=== PATIENT | female | born 1970 | race Caucasian/White ===

== ENCOUNTER 2017-02-05 05:08 | Day surgery (SDC) | payer BC, OTHER ==
[2017-01-30 10:50] VITALS: BMI 19.7
[2017-02-05] MEDS ORDERED: PROPOFOL 20 ML ONE (13:46)
[2017-02-05] MEDS ORDERED: MIDAZOLAM HCL 2 MG/2 ML SINGLE DOSE VIAL ONE (13:46)
[2017-02-05] MEDS ORDERED: ceFAZolin SODIUM 1 GM VIAL IVPB ONE (14:01)
[2017-02-05] MEDS ORDERED: ceFAZolin SODIUM 1 GM VIAL ONE (14:02)
--- NOTE | 2017-02-05 14:22 | OP ---
Operative Note - Note: Operative Date: 02/05/17 Pre-Operative Diagnosis: Urethral stenosis Operation: cysto- dilatation Findings: Urethral stenosis Post-Operative Diagnosis: Same as Pre-op Anesthesia: General
[2017-02-05] MEDS ORDERED: ACETAMINOPHEN 325 MG TABLET (FP) PO PRN (14:31)
[2017-02-05] MEDS ORDERED: ONDANSETRON 4 MG/2 ML VIAL IVPUSH PRN (14:31)
[2017-02-05] MEDS ORDERED: oxyCODONE HCL 5 MG TABLET PO PRN (14:31)
[2017-02-05] MEDS ORDERED: LACTATED RINGERS SOLUTION 1,000 ML IV SCH (14:45)
[2017-02-05 15:47] VITALS: TEMP 98.4
[2017-02-05 16:02] VITALS: BP 95/72; PULSE 76
--- NOTE | 2017-02-08 08:17 | OP ---
DATE OF OPERATION: 02/05/2017 SURGEON: Guillaume Pablo MD ANESTHESIA: General. PREOPERATIVE DIAGNOSES: 1. Urethral stenosis. 2. Recurrent urinary tract infection. POSTOPERATIVE DIAGNOSES: 1. Urethral stenosis. 2. Recurrent urinary tract infection. PROCEDURE: Cystoscopy and dilatation. FINDINGS: [id number] degree of urethral stenosis noted. DESCRIPTION OF PROCEDURE: The patient, in lithotomy position under anesthesia, was prepped and draped in the usual manner. Urethra was dilated first, then cystoscopy performed, and findings were noted above. Patient tolerated the procedure well and left the operating room in a satisfactory condition. Cecily [id number]
== END 2017-02-05 16:20 | disposition home or self-care (01) ==
LOC: JASU-SURG 05:08
PROVIDERS: ATTEND Urology
PROC: 0T7D8ZZ Dilation of Urethra, Via Natural or Artificial Opening Endoscopic (ICD-10-PCS; principal; 2017-02-05 13:00)
DX: N35.9 Urethral stricture, unspecified (principal); Z87.440 Personal history of urinary (tract) infections
CPT/HCPCS: 94760

== ENCOUNTER 2018-02-02 05:06 | Day surgery (SDC) | payer BC, OTHER ==
[2018-01-27 16:08] VITALS: BMI 19.3
[2018-02-02] MEDS ORDERED: MIDAZOLAM HCL 2 MG/2 ML SINGLE DOSE VIAL ONE (11:00)
[2018-02-02] MEDS ORDERED: ceFAZolin SODIUM 1 GM VIAL IVPB ONE (11:17)
--- NOTE | 2018-02-02 11:26 | OP ---
Operative Note - Note: Operative Date: 02/02/18 Pre-Operative Diagnosis: Urethral Stricture Operation: Cysto Dilatation Findings: Bladder shows some trabeculation. Ureteral orifices WNL. Urethral stricture noted Post-Operative Diagnosis: Same as Pre-op Surgeon: Guillaume Pablo Anesthesia: General
[2018-02-02 12:28] VITALS: TEMP 97.9
[2018-02-02 14:48] VITALS: BP 111/74; PULSE 78
--- NOTE | 2018-02-02 19:06 | OP ---
DATE OF OPERATION: 02/02/2018 SURGEON: Guillaume Pablo MD ANESTHESIA: General. PREOPERATIVE DIAGNOSIS: Urethral stricture. POSTOPERATIVE DIAGNOSIS: Urethral stricture. PROCEDURE: Cystoscopy and urethral dilatation. FINDINGS: [id number] urethral stricture noted. Bladder within normal limits. Some trabeculation of the bladder wall noted. Both ureteral orifices normally located with clear efflux. DESCRIPTION OF PROCEDURE: Patient, in lithotomy position, under anesthesia, was prepped and draped in the usual manner. Using 22 scope, cystoscopy performed, and findings were noted above. Then, using the sounds, urethra was dilated up to 24-Hebrew in size. Patient tolerated the procedure well and left the operating room in satisfactory condition. Cecily GALEANO/[id number]
== END 2018-02-02 13:40 | disposition home or self-care (01) ==
LOC: JASU-SURG 05:06
PROVIDERS: ATTEND Urology
PROC: 0T7D8ZZ Dilation of Urethra, Via Natural or Artificial Opening Endoscopic (ICD-10-PCS; principal; 2018-02-02 10:00)
DX: N35.9 Urethral stricture, unspecified (principal)
CPT/HCPCS: 94760

== ENCOUNTER 2018-05-13 16:12 | Emergency (ER) | payer BC, OTHER ==
--- NOTE | 2018-05-13 16:17 | PDOC ---
History of Present Illness - General History Source: Patient Exam Limitations: No Limitations - History of Present Illness Initial Comments: 05/13/18 17:15 The patient is a 47 year old female, with a significant PMH of untreated hyperthyroidism, IBS, and mitral valve prolapse who presents to the emergency department for evaluation of possible right index finger infection. The patient notes swelling and redness to the right index finger today. The patient denies any trauma, numbness and tingling to the site. Denies fever, chills, nausea. Allergies: NKDA Past surgical history: Laproscopy and tonsillectomy Social history: None reported PCP: None reported <Johann García - Last Filed: 05/13/18 17:20> <Linda Menezes - Last Filed: 05/13/18 18:56> - General Chief Complaint: Redness To Affected Area Stated Complaint: RT 2ND FINGER RED Time Seen by Provider: 05/13/18 16:16 Past History <Johann García - Last Filed: 05/13/18 17:20> - Past Medical History Anemia: No Asthma: No Cancer: No Cardiac Disorders: Yes (MVP) CVA: No COPD: No CHF: No Dementia: No Diabetes: No GI Disorders: Yes (IBS) Disorders: Yes (URETHRAL STRICTURES) HTN: No Hypercholesterolemia: No Liver Disease: No Seizures: No Thyroid Disease: Yes (HYPERTHYROIDISM-NO MEDS) - Surgical History Abdominal Surgery: Yes (LAPAROSCOPIC TO CHECK FOR ENDOMETRIOSIS) Appendectomy: No Cardiac Surgery: No Cholecystectomy: No Lung Surgery: No Neurologic Surgery: No Orthopedic Surgery: Yes (TONSILLECTOMY) - Immunization History Td Vaccination: No Immunization Up to Date: Yes - Suicide/Smoking/Psychosocial Hx Smoking Status: No Smoking History: Never smoked Years of Tobacco Use: 0 Have you smoked in the past 12 months: No Number of Cigarettes Smoked Daily: 0 Cigars Per Day: 0 Hx Alcohol Use: No Drug/Substance Use Hx: No Substance Use Type: None Hx Substance Use Treatment: No <Linda Menezes - Last Filed: 05/13/18 18:56> - Past Medical History Allergies/Adverse Reactions: Allergies Allergy/AdvReac Type Severity Reaction Status Date / Time levofloxacin [From Levaquin] AdvReac Severe Verified 02/25/18 22:49 azithromycin AdvReac Intermediate Verified 02/25/18 22:49 Home Medications: Ambulatory Orders Amoxicillin 2,000 mg PO BID 7 Days ml 05/13/18 Mupirocin Ointment [Bactroban 2% Ointment -] 1 applic TP BID #1 applic 05/13/18 Review of Systems - Review of Systems Constitutional: No: Symptoms Reported, See HPI, Chills, Diaphoresis, Fever, Loss of Appetite, Malaise, Night Sweats, Weakness, Weight Stable, Unintentional Wgt. Loss, Unexplained wgt Loss, Other HEENTM: No: Symptoms Reported, See HPI, Eye Pain, Blurred Vision, Tearing, Recent change in vision, Double Vision, Cataracts, Ear Pain, Ocular Prothesis, Ear Discharge, Nose Pain, Nose Congestion, Tinnitus, Nose Bleeding, Hearing Loss , Throat Pain, Throat Swelling, Mouth Pain, Dental Problems, Difficulty Swallowing, Mouth Swelling, Other Integumentary: Yes: Erythema (right index finger ) <Johann García - Last Filed: 05/13/18 17:20> *Physical Exam - Vital Signs Last Vital Signs Temp Pulse Resp BP Pulse Ox 98.1 F 74 20 109/80 100 05/13/18 16:13 05/13/18 16:13 05/13/18 16:13 05/13/18 16:13 05/13/18 16:13 - Physical Exam General Appearance: Yes: Nourished, Appropriately Dressed, Apparent Distress Integumentary: positive: Erythema, Swelling (right index finger ) <Johann García - Last Filed: 05/13/18 17:20> *DC/Admit/Observation/Transfer - Attestations Scribe Attestion: 05/13/18 17:19 Documentation prepared by Johann García, acting as medical imaging technologist for Linda Menezes MD. <Johann García - Last Filed: 05/13/18 17:20> - Discharge Dispostion Decision to Admit order: No <Linda Menezes - Last Filed: 05/13/18 18:56> Diagnosis at time of Disposition: Paronychia - Discharge Dispostion Disposition: HOME Condition at time of disposition: Stable - Prescriptions Prescriptions: Amoxicillin 2,000 mg PO BID 7 Days ml Mupirocin Ointment [Bactroban 2% Ointment -] 1 applic TP BID #1 applic - Referrals Referrals: Manny Izaguirre MD [Staff Physician] - - Patient Instructions Printed Discharge Instructions: DI for Paronychia Additional Instructions: Daily atbc and atbc ointment twice a day Follow up with your doctor or return here if no improvement
[2018-05-13 16:38] VITALS: BP 109/80; PULSE 74; TEMP 98.1; BMI 22.3
== END 2018-05-13 17:15 | disposition home or self-care (01) ==
LOC: FER 16:12
DX: L03.011 Cellulitis of right finger (principal); K58.9 Irritable bowel syndrome, unspecified; I34.1 Nonrheumatic mitral (valve) prolapse
CPT/HCPCS: 99281-25

== ENCOUNTER 2018-08-21 15:31 | Emergency (ER) | payer BC, OTHER ==
[2018-08-21 15:34] VITALS: BMI 19.8
[2018-08-21] MEDS ORDERED: SODIUM CHLORIDE 1,000 ML IV STA ×2 (15:58→17:43)
[2018-08-21] MEDS ORDERED: ACETAMINOPHEN 1000 MG/100 ML VIAL (NON FORMULARY) IVPB ONE (15:58)
--- NOTE | 2018-08-21 16:02 | PDOC ---
History of Present Illness - History of Present Illness Initial Comments: 08/21/18 16:09 This patient is a 47 year old female, with PMHx of hyperthyroidism, IBS, urethral stricture, arthritis, and mitral valve prolapse, who presents with 2 days of cold-like symptoms since last night. Patient reports experiencing fever , chills, tiredness, generalized weakness, and muscle aches since last night that have worsened today. She notes a Tmax of 100.8 F this morning. She also reports associated cough, mild headache, nausea, sore throat. Patient states that she had multiple BMs after taking Miralax last night. She states that she took Tylenol in addition to her regular medications today with minimal relief of her symptoms. She denies any chest pain, vomiting or dysuria. Denies neck stiffness. Denies dysuria. Allergies: seasional, Levofloxacin, Azithromycin. (nausea). Social Hx: Patient works as a schoolteacher. Denies any EtOH, tobacco, or illicit drug use. Surgical Hx: Laparoscopic procedure to check for endometriosis. Tonsillectomy. PCP: Dr. Talbert <Buddy Umana - Last Filed: 08/21/18 17:03> <Annemarie Gao - Last Filed: 08/21/18 19:09> - General Chief Complaint: Cold Symptoms Stated Complaint: COLD Time Seen by Provider: 08/21/18 15:32 Past History - Past Medical History Anemia: No Asthma: No Cancer: No Cardiac Disorders: Yes (MVP) CVA: No COPD: No CHF: No Dementia: No Diabetes: No GI Disorders: Yes (IBS) Disorders: Yes (URETHRAL STRICTURES) HTN: No Hypercholesterolemia: No Liver Disease: No Seizures: No Thyroid Disease: Yes (HYPERTHYROIDISM-NO MEDS) - Surgical History Abdominal Surgery: Yes (LAPAROSCOPIC TO CHECK FOR ENDOMETRIOSIS) Appendectomy: No Cardiac Surgery: No Cholecystectomy: No Lung Surgery: No Neurologic Surgery: No Orthopedic Surgery: Yes (TONSILLECTOMY) - Immunization History Td Vaccination: No Immunization Up to Date: Yes - Suicide/Smoking/Psychosocial Hx Smoking Status: No Smoking History: Never smoked Years of Tobacco Use: 0 Have you smoked in the past 12 months: No Number of Cigarettes Smoked Daily: 0 Cigars Per Day: 0 Hx Alcohol Use: No Drug/Substance Use Hx: No Substance Use Type: None Hx Substance Use Treatment: No <Buddy Umana - Last Filed: 08/21/18 17:03> <Annemarie Gao - Last Filed: 08/21/18 19:09> - Past Medical History Allergies/Adverse Reactions: Allergies Allergy/AdvReac Type Severity Reaction Status Date / Time levofloxacin [From Levaquin] AdvReac Severe Verified 08/21/18 15:32 azithromycin AdvReac Intermediate Verified 08/21/18 15:32 Home Medications: Ambulatory Orders Meloxicam [Mobic] 7.5 mg PO ASDIR 08/21/18 Review of Systems - Review of Systems Comments:: 08/21/18 16:10 GENERAL/CONSTITUTIONAL: +fever + chills/body aches, +generalized weakness, + malaise. HEAD, EYES, EARS, NOSE AND THROAT: No change in vision. No ear pain or discharge. +sore throat. GASTROINTESTINAL: +nausea, no vomiting, diarrhea or constipation. GENITOURINARY: No dysuria, frequency, or change in urination. CARDIOVASCULAR: No chest pain or shortness of breath. RESPIRATORY: +cough, no wheezing, or hemoptysis. MUSCULOSKELETAL: No joint or muscle swelling or pain. No neck or back pain. SKIN: No rash NEUROLOGIC: +mild headache, vertigo, loss of consciousness, or change in strength/sensation. ENDOCRINE: No increased thirst. No abnormal weight change. HEMATOLOGIC/LYMPHATIC: No anemia, easy bleeding, or history of blood clots. ALLERGIC/IMMUNOLOGIC: No hives or skin allergy. <Buddy Umana - Last Filed: 08/21/18 17:03> *Physical Exam - Vital Signs Last Vital Signs Temp Pulse Resp BP Pulse Ox 98.6 F 96 H 18 107/70 100 08/21/18 15:31 08/21/18 15:31 08/21/18 15:31 08/21/18 15:31 08/21/18 15:31 - Physical Exam Comments: 08/21/18 16:10 GENERAL: Awake, alert, and fully oriented, in no acute distress. HEAD: No signs of trauma EYES: PERRLA, EOMI, sclera anicteric, conjunctiva clear ENT: Auricles normal inspection, hearing grossly normal, nares patent, oropharynx clear without exudates. Moist mucosa NECK: No meningismus, Nontender, no stepoffs, Normal ROM, supple, no lymphadenopathy, JVD, or masses LUNGS: Breath sounds equal, clear to auscultation bilaterally. No wheezes, and no crackles HEART: Regular rate and rhythm, normal S1 and S2, no murmurs, rubs or gallops ABDOMEN: Soft, nontender, normoactive bowel sounds. No guarding, no rebound. No masses EXTREMITIES: Normal range of motion, no edema. No clubbing or cyanosis. No cords, erythema, or tenderness NEUROLOGICAL: Cranial nerves II through XII intact. 5/5 strength and sensation in all extremities, Normal speech, normal gait, normal cerebellar function SKIN: Warm, Dry, normal turgor, no rashes or lesions noted. <Buddy Umana - Last Filed: 08/21/18 17:03> - Vital Signs Last Vital Signs Temp Pulse Resp BP Pulse Ox 99.0 F 82 17 104/58 L 100 08/21/18 18:23 08/21/18 18:23 08/21/18 18:23 08/21/18 18:23 08/21/18 18:23 <Annemarie Gao - Last Filed: 08/21/18 19:09> Moderate Sedation - Procedure Monitoring Vital Signs: Procedure Monitoring Vital Signs Temperature 98.6 F 08/21/18 15:31 Pulse Rate 96 H 08/21/18 15:31 Respiratory Rate 18 08/21/18 15:31 Blood Pressure 107/70 08/21/18 15:31 O2 Sat by Pulse Oximetry (%) 100 08/21/18 15:31 <Buddy Umana - Last Filed: 08/21/18 17:03> - Procedure Monitoring Vital Signs: Procedure Monitoring Vital Signs Temperature 99.0 F 08/21/18 18:23 Pulse Rate 82 08/21/18 18:23 Respiratory Rate 17 08/21/18 18:23 Blood Pressure 104/58 L 08/21/18 18:23 O2 Sat by Pulse Oximetry (%) 100 08/21/18 18:23 <Annemarie Gao - Last Filed: 08/21/18 19:09> ED Treatment Course - Medications Given in the ED: ED Medications Discontinued Medications Generic Name Dose Route Start Last Admin Trade Name Freq PRN Reason Stop Dose Admin Acetaminophen 1,000 mg 08/21/18 15:58 08/21/18 16:26 Ofirmev Injection - IVPB 08/21/18 15:59 1,000 mg ONCE ONE Administration Sodium Chloride 1,000 mls @ 1,000 mls/hr 08/21/18 15:58 08/21/18 16:26 Normal Saline - IV 08/21/18 16:57 1,000 mls/hr ASDIR STA Administration Sodium Chloride 1,000 mls @ 1,000 mls/hr 08/21/18 17:43 08/21/18 17:48 Normal Saline - IV 08/21/18 18:42 1,000 mls/hr ASDIR STA Administration <Annemarie Gao - Last Filed: 08/21/18 19:09> Medical Decision Making - Medical Decision Making 08/21/18 16:10 47 F with sore throat, cough, bodyaches, suspicious for viral URI. Pt with no exudates, no tender lymphadenopathy on exam to suggest strep. Pt has mild headache but no meningismus on exam. - IVF, tylenol, reglan - Pt refused flu swab due to inability to tolerate nasal swab 08/21/18 17:03 Pt reassessed after fluids and meds, now feels significantly better Still mild headache but no signs of meningitis Pt is well appearing, with normal vitals. Clinically stable for DC at this time. I discussed the physical exam findings, ancillary test results and final diagnoses with the patient. I answered all of the patient's questions. The patient was satisfied with the care received and felt comfortable with the discharge plan and treatment plan. The patient agrees to follow up with the primary care physician within 24-72 hours. <Buddy Umana - Last Filed: 08/21/18 17:03> *DC/Admit/Observation/Transfer - Attestations Physician Attestion: 08/21/18 16:29 I, Dr. Buddy Umana MD, attest that this document has been prepared under my direction and personally reviewed by me in its entirety. I further attest, that it accurately reflects all work, treatment, procedures and medical decision -making performed by me. <Buddy Umana - Last Filed: 08/21/18 17:03> - Attestations Scribe Attestion: 08/21/18 19:09 Documentation prepared by Annemarie Gao, acting as registered medical assistant for Buddy Umana MD. <Annemarie Gao - Last Filed: 08/21/18 19:09> Diagnosis at time of Disposition: Upper respiratory infection - Discharge Dispostion Disposition: HOME - Patient Instructions Printed Discharge Instructions: DI for Viral Upper Respiratory Infection -- Adult Additional Instructions: Drink plenty of fluids to stay hydrated. If you experience severe headache, neck stiffness, abdominal pain, chest pain, or any other concerning symptoms, return to the ER immediately. Otherwise follow up with your primary doctor within 48 hours. - Post Discharge Activity Forms/Work/School Notes: Back to Work
[2018-08-21] MEDS ORDERED: ACETAMINOPHEN INJECTION 100 ML IVPB ONE (16:16)
[2018-08-21 18:25] VITALS: BP 104/58; PULSE 82; TEMP 99
== END 2018-08-21 18:55 | disposition home or self-care (01) ==
LOC: FER 15:31
PROC: 3E033NZ Introduction of Analgesics, Hypnotics, Sedatives into Peripheral Vein, Percutaneous Approach (ICD-10-PCS; principal; 2018-08-21)
PROC: 3E0337Z Introduction of Electrolytic and Water Balance Substance into Peripheral Vein, Percutaneous Approach (ICD-10-PCS; 2018-08-21)
DX: J06.9 Acute upper respiratory infection, unspecified (principal); E05.90 Thyrotoxicosis, unspecified without thyrotoxic crisis or storm; K58.9 Irritable bowel syndrome, unspecified; I34.1 Nonrheumatic mitral (valve) prolapse; Z88.1 Allergy status to other antibiotic agents
CPT/HCPCS: 99282-25; J0131; J7030

== ENCOUNTER 2018-12-10 21:27 | Emergency (ER) | payer BC, OTHER ==
[2018-12-10 21:38] VITALS: BP 128/90; PULSE 72; TEMP 98.5; BMI 20.3
--- NOTE | 2018-12-10 21:50 | PDOC ---
History of Present Illness - General Chief Complaint: Pain Stated Complaint: IBS Time Seen by Provider: 12/10/18 21:29 - History of Present Illness Initial Comments: This 48-year-old woman with a history of IBSc and urethral strictures presents with several hour history of abdominal discomfort/cramping. The patient has chronic constipation secondary to her IBS for which she intermittently takes MiraLAX. The patient states that she had her usual dose of MiraLAX last night for constipation. Normally, MiraLAX is very effective within 12-24 hours for bowel evacuation. Today, patient had a few bowel movements in the morning with passage of scant stool. 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 Also, she was delayed during her afternoon commute and, even though she had sensation to have a bowel movement, was not able to get to a bathroom quickly. When she was able to attempt to have a bowel movement, she was unable to and began to have crampy lower abdominal pain. She denies nausea/ vomiting/fever. She has had no history of bowel obstruction; she had 1 surgical procedure (laparoscopic pelvic exploration to evaluate for endometriosis) many years ago. The patient states that she has taken antispasmodic medications in the past but they tend to constipate her more. Therefore, she avoids them. She currently does not have a appeals specialist. Past History - Past Medical History Allergies/Adverse Reactions: Allergies Allergy/AdvReac Type Severity Reaction Status Date / Time levofloxacin [From Levaquin] AdvReac Severe Verified 08/21/18 15:32 azithromycin AdvReac Intermediate Verified 08/21/18 15:32 Home Medications: Ambulatory Orders Meloxicam [Mobic] 7.5 mg PO ASDIR 08/21/18 Polyethylene Glycol 3350 [Miralax (For Bowel Prep) -] 17 gm PO DAILY PRN Anemia: No Asthma: No Cancer: No Cardiac Disorders: Yes (MVP) CVA: No COPD: No CHF: No Dementia: No Diabetes: No GI Disorders: Yes (IBS) Disorders: Yes (URETHRAL STRICTURES) HTN: No Hypercholesterolemia: No Liver Disease: No Seizures: No Thyroid Disease: Yes (HYPERTHYROIDISM-NO MEDS) - Surgical History Abdominal Surgery: Yes (LAPAROSCOPIC TO CHECK FOR ENDOMETRIOSIS) Appendectomy: No Cardiac Surgery: No Cholecystectomy: No Lung Surgery: No Neurologic Surgery: No Orthopedic Surgery: Yes (TONSILLECTOMY) - Immunization History Td Vaccination: No Immunization Up to Date: Yes - Suicide/Smoking/Psychosocial Hx Smoking Status: No Smoking History: Never smoked Years of Tobacco Use: 0 Have you smoked in the past 12 months: No Number of Cigarettes Smoked Daily: 0 Cigars Per Day: 0 Hx Alcohol Use: No Drug/Substance Use Hx: No Substance Use Type: None Hx Substance Use Treatment: No Review of Systems - Review of Systems Able to Perform ROS?: Yes Comments:: 12 point review of systems is negative except for what is noted in the history of present illness *Physical Exam - Vital Signs Last Vital Signs Temp Pulse Resp BP Pulse Ox 98.5 F 72 16 128/90 100 12/10/18 21:35 12/10/18 21:35 12/10/18 21:35 12/10/18 21:35 12/10/18 21:35 - Physical Exam Comments: GENERAL: Adult female, alert and oriented 3, in mild distress secondary to lower abdominal pain HEAD: Normal with no signs of trauma. EYES: PERRLA, EOMI, sclera anicteric, conjunctiva clear. ENT: Ears normal, nares patent, oropharynx clear without exudates. Dry mucous membranes. NECK: Normal range of motion, supple without lymphadenopathy, JVD, or masses. LUNGS: Breath sounds equal, clear to auscultation bilaterally. No wheezes, and no crackles. HEART:Regular rate and rhythm, normal S1 and S2 without murmur, rub or gallop. ABDOMEN:.normal bowel sounds; mild tenderness bilateral lower quadrants without rebound tenderness/involuntary guarding/masses EXTREMITIES: Normal range of motion, no edema. No clubbing or cyanosis. No erythema, or tenderness. NEUROLOGICAL: Cranial nerves II through XII grossly intact. Normal speech. No focal neurological deficits. MUSCULOSKELETAL: Back non-tender to palpation, no CVA tenderness SKIN: Warm, Dry, normal turgor, no rashes or lesions noted. ED Treatment Course - LABORATORY CBC & Chemistry Diagram: 12/10/18 22:35 12/10/18 22:35 Progress Note - Progress Note Progress Note: This 48-year-old woman with a history of IBSc presents with crampy abdominal pain, especially in the lower quadrants, along with intermittent rectal urgency. Although she has taken her usual laxative, MiraLAX, she has not had significant of evacuation of her bowels today. No vomiting or nausea noted. Exam is noted with soft, nondistended abdomen with normal bowel sounds. She does have some mild tenderness of bilateral lower quadrants. Although patient has no history of SBO, she has some minimal risk since she is s /p laparoscopic procedure many years ago. Since she appeared clinically dehydrated, IV was started and patient given a liter normal saline. Urinalysis/ PGU/CBC/chemistry profile was also evaluated. Flat and upright x-ray of the abdomen was obtained to evaluate for gas pattern suggestive of SBO. Interpretation of the x-ray by of the radiology staff: Moderate attention of stool throughout the entire colon. No evidence of SBO or other abnormality. Laboratory evaluation essentially normal except for evidence of moderate prerenal azotemia with BUN of 22 and creatinine of 0.7 Patient given a full liter of normal saline as well as 30 mg of Toradol IV . Patient states that after hydration and anti-inflammatory medication, she has had some relief of her abdominal cramping. Presentation most consistent with IBS-c flareup. Patient was cautioned to drink plenty of water and continue her medications as prescribed. Since she does not have a appeals specialist currently, she should pursue following up with one. The patient asked for referral information for gastroenterologists on our staff: She was given contact information for Dr. Salgado and Dr. Oro. She should return to the ER if she has worsening abdominal pain/vomiting/fever *DC/Admit/Observation/Transfer Diagnosis at time of Disposition: Irritable bowel syndrome (IBS) Qualifiers: Irritable bowel syndrome type: with constipation Qualified Code(s): K58.1 - Irritable bowel syndrome with constipation Constipation Qualifiers: Constipation type: unspecified constipation type Qualified Code(s): K59.00 - Constipation, unspecified - Discharge Dispostion Disposition: HOME Condition at time of disposition: Stable - Referrals Referrals: Marlo Talbert MD [Primary Care Provider] - Walter Salgado MD [Staff Physician] - Call tomorrow - Patient Instructions Printed Discharge Instructions: Irritable Bowel Syndrome Additional Instructions: continue to drink plenty of water Continue other medications as prescribed Follow-up with Dr. Salgado or (appeals specialist) within the next 5 days Return to ER if you have persistent pain or experience fever/vomiting - Post Discharge Activity
[2018-12-10 22:08] LABS: HCG,QUALITATIVE URINE Negative
[2018-12-10 22:52] LABS: BASO % 1.1 % (0-2.0); EOS % 2.8 % (0-4.5); HEMATOCRIT 37.6 % (32.4-45.2); MCH 22.5 pg (25.7-33.7); MCHC 31.8 g/dl (32.0-36.0); MEAN PLT VOLUME 9.1 fl (7.5-11.1); MONO % 8.8 % (3.8-10.2); NEUT % 57.3 % (42.8-82.8); PLATELET COUNT 186 K/MM3 (134-434); RDW 14.2 % (11.6-15.6); WHITE BLOOD COUNT 6.1 K/mm3 (4.0-10.8)
[2018-12-10 22:53] LABS: EPITHELIAL CELLS FEW /hpf
[2018-12-10 22:55] LABS: ADD RBC MORPHOLOGY YES
[2018-12-10 23:07] LABS: BILIRUBIN,TOTAL 0.8 mg/dl (0.2-1); CALCIUM 9.8 mg/dl (8.5-10); CREATININE 0.7 mg/dl (0.55-1.3); POTASSIUM 4.2 mmol/L (3.5-5.1); TOT PROT 6.4 g/dl (6.4-8.2)
[2018-12-10] MEDS ORDERED: KETOROLAC TROMETHAMINE 30 MG/1 ML VIAL IVPUSH ONE (23:07)
[2018-12-10] MEDS ORDERED: KETOROLAC TROMETHAMINE 30 MG/1 ML VIAL ONE (23:08)
[2018-12-10 23:13] LABS: TARGET CELLS 1+
[2018-12-10 23:14] LABS: PLATELET ESTIMATE ADEQUATE
== END 2018-12-10 23:33 | disposition home or self-care (01) ==
LOC: FER 21:27
PROC: 3E0333Z Introduction of Anti-inflammatory into Peripheral Vein, Percutaneous Approach (ICD-10-PCS; principal; 2018-12-10)
DX: K59.00 Constipation, unspecified (principal); K58.1 Irritable bowel syndrome with constipation
CPT/HCPCS: 36415; 74019-TC-FY; 80053; 81003; 81015; 84703; 85025; 99282-25

== ENCOUNTER 2018-12-20 23:15 | Emergency (ER) | payer BC, OTHER | END 2018-12-20 23:55 | disposition home or self-care (01) | LOC: FER 23:15 ==

== ENCOUNTER 2019-02-17 11:42 | Day surgery (SDC) | payer BC, OTHER | END 2019-02-17 16:41 | disposition home or self-care (01) | LOC: JASU-SURG 11:42 ==

== ENCOUNTER 2022-04-22 19:19 | Emergency (ER) | payer BC, OTHER ==
[2022-04-22 19:52] VITALS: BP 119/66; PULSE 75; RESP 18; TEMP 98.1; BMI 18.2
== END 2022-04-22 21:26 | disposition home or self-care (01) ==
LOC: FER 19:19
DX: S13.4XXA Sprain of ligaments of cervical spine, initial encounter (principal); V89.2XXA Person injured in unspecified motor-vehicle accident, traffic, initial encounter
CPT/HCPCS: 72050-TC-FY; 99283-25

== ENCOUNTER 2022-09-04 20:41 | Emergency (ER) | payer BC, OTHER ==
[2022-09-04 21:13] VITALS: BP 124/55; PULSE 82; RESP 18; TEMP 99.1; BMI 18.4
[2022-09-04] MEDS ORDERED: HYOSCYAMINE SULFATE 0.125 MG TABLET PO STA (21:22)
[2022-09-04 22:02] LABS: HEMATOCRIT 36.6 % (32.4-45.2); HEMOGLOBIN 11.8 G/dL (10.7-15.3); MCH 22.9 pg (25.7-33.7); MCHC 32.3 g/dl (32.0-36.0); MEAN PLT VOLUME 8.5 fl (7.5-11.1); PLATELET COUNT 188.3 10^3/uL (134-434); RBC 5.16 10^6/uL (3.60-5.2); RDW 17.1 % (11.6-15.6); WHITE BLOOD COUNT 6.8 10^3/uL (4.0-10.8)
[2022-09-04 22:16] LABS: ALBUMIN 4.2 g/dl (3.4-5.0); BILIRUBIN,TOTAL 0.8 mg/dl (0.2-1); CALCIUM 9.5 mg/dl (8.5-10); CREATININE 0.7 mg/dl (0.55-1.3); TOT PROT 6.3 g/dl (6.4-8.2)
== END 2022-09-04 22:42 | disposition home or self-care (01) ==
LOC: FER 20:41
DX: K59.00 Constipation, unspecified (principal); K58.9 Irritable bowel syndrome, unspecified; R10.84 Generalized abdominal pain
CPT/HCPCS: 36415; 74019-TC-FY; 80053; 85027; 99284-25

== ENCOUNTER 2022-09-22 08:25 | Emergency (ER) | payer BC, OTHER ==
[2022-09-22] MEDS ORDERED: SODIUM CHLORIDE 1,000 ML IV STA (08:29)
[2022-09-22 08:48] VITALS: BP 93/67; PULSE 104; RESP 20; TEMP 99.1; BMI 17.7
[2022-09-22 09:22] LABS: HEMATOCRIT 36.5 % (32.4-45.2); HEMOGLOBIN 12.2 G/dL (10.7-15.3); MCH 22.8 pg (25.7-33.7); MCHC 33.3 g/dl (32.0-36.0); MEAN CELL VOLUME 68.5 fl (80-96); MEAN PLT VOLUME 8.5 fl (7.5-11.1); RBC 5.33 10^6/uL (3.60-5.2); RDW 17.1 % (11.6-15.6); WHITE BLOOD COUNT 11.3 10^3/uL (4.0-10.8)
[2022-09-22 09:37] LABS: BILIRUBIN,TOTAL 1.1 mg/dl (0.2-1); CALCIUM 9.4 mg/dl (8.5-10); CREATININE 0.6 mg/dl (0.55-1.3); TOT PROT 6.1 g/dl (6.4-8.2)
== END 2022-09-22 10:15 | disposition home or self-care (01) ==
LOC: FER 08:25
PROC: 3E0337Z Introduction of Electrolytic and Water Balance Substance into Peripheral Vein, Percutaneous Approach (ICD-10-PCS; principal; 2022-09-22)
DX: A08.4 Viral intestinal infection, unspecified (principal)
CPT/HCPCS: 36415; 80053; 85027; 99284-25

== ENCOUNTER 2023-07-19 09:55 | Emergency (ER) | payer BC, OTHER ==
[2023-07-19 10:18] VITALS: BP 99/60; PULSE 96; RESP 15; TEMP 100.7; BMI 18.3
[2023-07-19 11:44] LABS: THROAT:GRP A STREP NOT DETECTED (NOTDETECTED)
== END 2023-07-19 10:40 | disposition home or self-care (01) ==
LOC: FER 09:55
DX: J02.9 Acute pharyngitis, unspecified (principal); R05.9 Cough, unspecified; R09.81 Nasal congestion; R50.9 Fever, unspecified; J06.9 Acute upper respiratory infection, unspecified; Z20.822 Contact with and (suspected) exposure to COVID-19
CPT/HCPCS: 0241U-QW; 87651; 99283-25